=== PATIENT | female | born 1945 | race Caucasian/White ===

== ENCOUNTER 2017-11-21 12:27 | Day surgery (SDC) | payer MEDICARE, BC ==
--- NOTE | 2017-11-21 13:43 | OR ---
Operative Report - Dictated Report Narrative: Location: Main OR Anesthesia: None Preoperative Diagnosis: Microhematuria Postoperative Diagnosis: Same Procedure: #1 flexible cystoscopy with washing for cytology and culture Indications: 72-year-old female smoker with history of microhematuria. Above- mentioned procedures indicated to rule out bladder pathology. CT was performed and looked okay on the urinary side without pathology however there were some liver findings with some radiology recommendations for that. Description: Consent obtained. Placed in the frog-leg position. Prepped and draped. Time-out taken . Scope inserted into the urethra and navigated to the bladder with ease. Washing was obtained sent for cytology and culture. No tumors stones or suspicious lesions . There was some mild cystitis cystica type change in a few small areas near the dome. A little bit of nonspecific debris. Lesions did not look concerning at all. No real trabeculation Ureters normal in number and position Normal bladder neck Normal urethra EBL: 0 Specimen: Washing for cytology and culture Condition: tolerate procedure Important Findings: Debris, cystitis cystica type change. FOLLOW UP: We'll treat given procedure. Follow-up on culture and cytology. If cytology negative no further workup necessary. She will need to follow with primary care for the liver findings.
[2017-11-21 13:45] VITALS: BP 164/89
[2017-11-21 16:49] LABS: Urine Bilirubin Negative (NEGATIVE); Urine Blood Negative /ul (NEGATIVE); Urine Ketone Negative (NEGATIVE); Urine Nitrite Negative (NEGATIVE); Urine Protein Negative (NEGATIVE); Urine Specific Gravity 1.015 SP.GR. (1.005-1.010); Urine Urobilinogen Normal (NORMAL); Urine pH 6.5 pH (5.0-7.0)
[2017-11-21 16:59] LABS: Urine Appearance Clear; Urine Color Yellow
[2017-11-21 17:00] LABS: Urine Bacteria TRACE; Urine Hyaline Cast TRACE /LPF; Urine RBC 0-5 /hpf (0-5); Urine WBC 0-5 /hpf (0-5)
== END 2017-11-21 12:28 | disposition home or self-care (01) ==
LOC: AMB 12:27
PROVIDERS: ATTEND Urology
PROC: 0TJB8ZZ Inspection of Bladder, Via Natural or Artificial Opening Endoscopic (ICD-10-PCS; principal; 2017-11-21)
PROC: 3E1K88X Irrigation of Genitourinary Tract using Irrigating Substance, Via Natural or Artificial Opening Endoscopic, Diagnostic (ICD-10-PCS; 2017-11-21)
DX: F17.210 Nicotine dependence, cigarettes, uncomplicated; R31.29 Other microscopic hematuria; Z68.20 Body mass index [BMI] 20.0-20.9, adult; Z87.440 Personal history of urinary (tract) infections